=== PATIENT | male | born 1970 | race Caucasian/White ===

== ENCOUNTER → 2016-07-19 | Outpatient (CLI) | payer OTHER ==
--- NOTE | 2016-07-19 08:24 | MR ---
EXAMINATION TYPE: MR knee LT wo con DATE OF EXAM: 07/19/2016 6:51 AM COMPARISON: NONE HISTORY: Left knee pain TECHNIQUE: Multiplanar, multisequence imaging of the left knee is performed without IV contrast. FINDINGS: MEDIAL MENISCUS: Within the posterior horn of the medial meniscus there is some linear increased sign al posteriorly and medially which extends to the articular surface suspicious for tear. Pattern is so mewhat stellate and the tear may be complex. LATERAL MENISCUS: Within the medial aspect of the posterior horn of the lateral meniscus there is darwin e linear increased signal extends the articular surface, difficult to exclude tear. CRUCIATE LIGAMENTS: The anterior and posterior cruciate ligaments are intact and unremarkable. COLLATERAL LIGAMENTS: The medial collateral ligament and lateral collateral ligament complex are inta ct and unremarkable. EXTENSOR MECHANISM: Visualized quadriceps and patellar tendons are intact. EFFUSION: Small joint effusion is present in the suprapatellar bursa laterally POPLITEAL CYST: Small semimembranosus gastrocnemius cyst is present. TRICOMPARTMENT SPACES: Maintained. CARTILAGE: There is some irregularity of the articular cartilage anteriorly at the lateral femoral co ndyle possibly posttraumatic change. BONE MARROW SIGNAL: Abnormal increased signal is present within the lateral femoral condyle, there ma y be subchondral microtrabecular fracture present anteriorly OTHER: No additional significant abnormality is appreciated. IMPRESSION: Bone contusion, possible osteochondral injury in the lateral femoral condyle anteriorly. Findings com patible with tear of the posterior horn of the medial meniscus and possibly lateral meniscus.
== END | disposition home or self-care (01) ==
LOC: RADMRIMAIN 06:18
PROVIDERS: ATTEND Orthopaedic Surgery
DX: S80.02XA Contusion of left knee, initial encounter (principal)

== ENCOUNTER → 2016-10-18 | Outpatient (CLI) | payer OTHER ==
[2016-10-18 12:56] LABS: Basophils # (A) 0.1 k/uL (0-0.2); Basophils % (A) 1 %; CH 30.7; CHCM 34.7; Eosinophils # (A) 0.1 k/uL (0-0.7); Eosinophils % (A) 1 %; HCT 42.6 % (39.0-53.0); HDW 2.42; HGB 15.1 gm/dL (13.0-17.5); Luc # (Auto) 0.13; Luc % (Auto) 2; Lymphocytes # (A) 1.3 k/uL (1.0-4.8); Lymphocytes % (A) 20 %; MCH 31.4 pg (25.0-35.0); MCHC 35.3 g/dL (31.0-37.0); MCV 88.9 fL (80.0-100.0); Mean Platelet Volume 7.4; Monocytes # (A) 0.4 k/uL (0-1.0); Monocytes % (A) 6 %; Neutrophils # (A) 4.6 k/uL (1.3-7.7); Neutrophils % (A) 71 %; RDW 13.6 % (11.5-15.5); WBC 6.5 k/uL (3.8-10.6); WBC (Perox) 6.34
[2016-10-18 13:07] LABS: Potassium 4.6 mmol/L (3.5-5.1)
== END | disposition home or self-care (01) ==
LOC: LABPAT 12:33
PROVIDERS: ATTEND Orthopaedic Surgery
DX: Z01.812 Encounter for preprocedural laboratory examination (principal); M23.92 Unspecified internal derangement of left knee
CPT/HCPCS: 80051; 85025

== ENCOUNTER 2016-10-23 11:57 | Day surgery (SDC) | payer OTHER ==
[2016-10-22 08:03] VITALS: BMI 25.8
--- NOTE | 2016-10-22 13:21 | HP ---
CHIEF COMPLAINT: Left knee pain. 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 He notes locking up and pain with stairs. He has tried an injection along with medications with only partial temporary relief. He notes the knee does limit him. PAST MEDICAL HISTORY: Negative. CURRENT MEDICATIONS: None. He denies drug allergies. FAMILY HISTORY: Significant for heart disease. SOCIAL HISTORY: Significant for social alcohol use. A 16-point review of systems otherwise reviewed and is noncontributory. On examination, the patient is approximately 5 foot 10, 170 pounds of mesomorphic habitus. HEENT exam is nonfocal. Neck is supple. He has painless passive motion of his left hip, straight leg raise is negative. Active motion of left knee -2 to 140 degrees of flexion. He is tender about the medical joint line. Collaterals are stable, Marion is negative, Gonzalo's elicits medial pain. His distal neurovascular exam appears to be intact in the left lower extremity. MR report from 07/19/2016 of the left knee shows a posterior medial meniscal tear in additional to questionable chondral injury involving the lateral femoral condyle. IMPRESSION: Internal derangement left knee with medial meniscal tear and possible lateral femoral condyle chondral injury. RECOMMENDATIONS: I talked to the patient at length regarding his treatment options. He is having pain and mechanical symptoms that limit him despite conservative measures. After a thorough discussion, he opts to proceed with surgery. We will plan to proceed with arthroscopic evaluation with possible partial medial meniscectomy and possible lateral femoral chondrectomy. We will likely perform that as an outpatient procedure. The risks and benefits were discussed at length in layman's terms. DELL
[~2016-10-23 11:57] MED LIST: DEXAMETHASONE SOD PHOSPHATE 10 MG/ML 1 ML VIAL IV ONE; HYDROmorphone 1 MG/ML 1 ML SYRINGE IVP PRN; LACTATED RINGERS 1,000 ML IV SCH; ONDANSETRON 4 MG/2 ML VIAL IVP ONE; ceFAZolin 2 GM in SODIUM CHLORIDE 0.9% 100 ML IVPB ONE
[2016-10-23] MEDS ORDERED: LIDOCAINE 1% 20 ML VIAL (10MG/ML) FOR IV START INTRADERMA ONE (12:31)
[2016-10-23] MEDS ORDERED: LIDOCAINE 1% INJ 10MG/ML (20 ML MDV) ONE (13:52)
[2016-10-23] MEDS ORDERED: PROPOFOL 10 MG/ML 20 ML VIAL IV ONE (13:52)
[2016-10-23] MEDS ORDERED: fentaNYL (PF) 50 MCG/ML 2 ML AMP ONE (13:52)
[2016-10-23] MEDS ORDERED: MIDAZOLAM 2 MG/2 ML VIAL ONE (13:52)
[2016-10-23] MEDS ORDERED: KETOROLAC 30 MG/ML 1 ML VIAL ONE (13:52)
[2016-10-23] MEDS ORDERED: LACTATED RINGERS 1,000 ML IV ONE (14:10)
--- NOTE | 2016-10-23 14:51 | P.OP ---
Date of Procedure: 10/23/16 Preoperative Diagnosis: Left knee internal derangement Postoperative Diagnosis: Left knee grade 3/4 chondral injury lateral femoral trochlea, grade 2 chondral injury distal medial femoral condyle, reactive synovitis medial and patellofemoral compartments Procedure(s) Performed: Left knee arthroscopic lateral femoral trochlear chondroplasty with microfracture/medial femoral chondrectomy/partial synovectomy of the medial and patellofemoral compartments Implants: Anesthesia: GETA Surgeon: Terrence Dorado Estimated Blood Loss (ml): 10 Pathology: none sent Condition: stable Disposition: PACU Indications for Procedure: The patient is a 46-year-old male who presents with progressive left knee pain and mechanical symptoms despite conservative measures. A discussion of the risks and benefits of operative intervention versus continued conservative measures was made with patient. He opted to proceed with surgery. Operative risks to include infection, neurovascular injury, development of blood clots, possible incomplete resolution symptoms, possible worsening symptoms and need for subsequent procedures was discussed. Informed consent was obtained. Operative Findings: As below Description of Procedure: The patient was brought to the operating room, and after induction of general anesthesia I examined the left knee. Collaterals were stable, Marion was negative, and posterior drawer was negative. The left lower external he was prepped and draped in normal fashion. A superior lateral portal was made through a 3 mm skin incision superior and lateral to the patella. This was used for outflow. A lateral portal was made through a 5 mm vertical skin incision lateral to the patellar tendon above the joint line. Diagnostic arthroscopy was performed. A medial portal was made through a similar incision medial to the patella tendon above the joint line. On inspection of the medial compartment, the medial meniscus appeared stable and intact. There was a grade 2 chondral injury involving the distal medial portion of the medial femoral condyle. There was a loose chondral flap debrided back to stable base the motorized shaver. Reactive synovitis involving the anterior medial compartment was debrided with motorized shaver. On inspection of the notch, anterior cruciate ligament appeared be intact. On inspection lateral compartment, no significant meniscal or articular cartilage pathology was noted. On inspection of the patellofemoral articulation, there was a grade 3/4 chondral injury involving the lateral femoral trochlea. A loose chondral flap was noted. This was debrided back to stable base. The exposed grade 4 portion of the lesion measured 5 x 6 mm. Microfractures performed with a chondral pick down to the bleeding subchondral surface. Reactive synovitis involving the patellofemoral compartment was debrided with a motorized shaver. The gutters were clear debris. The knee was then thoroughly irrigated. The portals were closed with Steri-Strips. A sterile dressing was applied in addition to a compression stocking. The patient was awoken from general anesthesia and transferred to recovery room in good condition. Blood loss was estimated at 10 mL. No complications were incurred.
[2016-10-23 15:01] VITALS: TEMP 97.6
[2016-10-23 15:35] VITALS: RESP 16
[2016-10-23 16:28] VITALS: BP 131/76; PULSE 67
== END 2016-10-23 16:50 | disposition home or self-care (01) ==
LOC: OR 11:57
PROVIDERS: ATTEND Orthopaedic Surgery
DX: M94.8X6 Other specified disorders of cartilage, lower leg (principal); M65.9 Synovitis and tenosynovitis, unspecified
CPT/HCPCS: 29879; 29876; J2250; J1100; J0690; J2405; J2001; J3010; J1885; J2704